=== PATIENT | female | born 1980 | race Asian ===

== ENCOUNTER → 2018-06-02 09:00 | Outpatient (CLI) | payer OTHER, MEDICAID, SELFPAY ==
--- NOTE | 2018-06-02 09:01 | DI.RAD.S_ITS ---
PROCEDURE: XR LUMBAR SPINE MIN 4V INDICATIONS: Bilateral L4-L5 and S1 medial branch blocks TECHNIQUE: 5 views of the lumbar spine were acquired. COMPARISON: [facility], , -SPINE 2-3 VIEWS, 06/20/2016, 13:55. FINDINGS: Bones: No fracture or focal osseous destruction. Mild straightening of the normal lumbar lordosis. Lower lumbar facet arthropathy from L4-S1. Lower thoracic disc space narrowing of the lumbar disc spaces appear grossly preserved. Endplate spurring and sclerosis. Soft tissues: Overlying bowel gas pattern is normal. No suspicious soft tissue calcifications. Oblique images: No pars defects. IMPRESSION: Mild lower lumbar facet arthropathy. Lower thoracic spondylosis Dictated by: Dorian Lainez M.D. on 06/02/2018 at 10:09 Approved by: Dorian Lainez M.D. on 06/02/2018 at 10:11
== END ==
PROVIDERS: Family Provider Registered Nurse; PCP Registered Nurse; Visit Provider Physical Medicine & Rehabilitation
DX: M47.26 Other spondylosis with radiculopathy, lumbar region (principal); M47.27 Other spondylosis with radiculopathy, lumbosacral region; M47.24 Other spondylosis with radiculopathy, thoracic region
CPT/HCPCS: 72110

== ENCOUNTER → 2019-11-14 10:26 | Outpatient (CLI) | payer OTHER, MEDICAID, SELFPAY ==
[2019-11-15 17:30] LABS: COVID19 Sendout Not Detected (Not Detect)
== END ==
PROVIDERS: Family Provider Registered Nurse; PCP Registered Nurse; Visit Provider Physician Assistant
DX: Z11.59 Encounter for screening for other viral diseases (principal)
CPT/HCPCS: 87635

== ENCOUNTER 2019-11-17 14:01 | Outpatient (CLI) | payer OTHER, MEDICAID, SELFPAY ==
[2019-11-17] VITALS (9 sets, daily range): BP systolic 105–125; BP diastolic 64–89; PULSE 90–104; RESP 15–17; TEMP 35.9; O2SAT 99–100
--- NOTE | 2019-11-17 14:03 | DI.RAD.S_ITS ---
PROCEDURE: PAIN L/S FACET INJ/BLK 1ST MACI COMPARISON: [facility], TY, L-SPINE 2-3 VIEWS, 06/20/2016, 13:55. [facility], , XR LUMBAR SPINE MIN 4V, 06/02/2018, 9:01. INDICATIONS: SPONDYLOSIS FINDINGS: Fluoroscopic images were obtained during a procedure and submitted for interpretation following the completion of the procedure. On these images, bilateral spinal needles are seen at the L4-L5 and L5-S1 levels, as labeled on the images. The appropriate position of the tips of the needles was confirmed with injection of a small amount of iodinated contrast. IMPRESSION: Intraprocedural examination within normal limits. Dictated by: Nathaniel Martinez M.D. on 11/18/2019 at 8:47 Approved by: Nathaniel Martinez M.D. on 11/18/2019 at 8:48
--- NOTE | 2019-11-17 14:29 | PC.NURSE ---
Patient is A& O able to make needs known. Green pain log and post injection instructions given prior to procedure. Has no other questions or concerns.
[2019-11-17] MEDS: MIDAZOLAM 5 MG/5 ML VIAL IV (14:40)
[2019-11-17] MEDS: fentaNYL 100 MCG/2 ML INJ 50 MCG IV (14:40)
[2019-11-17] MEDS: BUPIVACAINE 0.5% (PF) VIAL 5 ML INJ (14:44)
[2019-11-17] MEDS: LIDOCAINE 1% 20 ML 10 ML INJ (14:44)
[2019-11-17] MEDS: IOPAMIDOL 15 ML VIAL 3 ML INJ (14:44)
[2019-11-17] MEDS: BETAMETHASONE 30 MG/5 ML MDV 12 MG INJ (14:44)
--- NOTE | 2019-11-17 15:02 | P.PCN_ITS ---
Date/Time/Diagnoses Date of procedure: 11/17/19 Time of procedure: 15:02 Pre-procedure diagnosis: 1. FACET ARTHROPATHY 2. AXIAL LBP 3. MULTILEVEL DDD Post-procedure diagnosis: same Procedure Notes Procedure: 1. FLUOROSCOPICALLY GUIDED CONTRAST CONTROLLED FACET JOINT INJECTIONS BILATERAL L4/5, L5/S1 Indications: Karen is referred by Fabiola Whitlock, MSN, APARTMENT MAINTENANCE TECHNICIAN-BC for treatment of Axial LBP Physician: Derick Landa Total Fluoroscopy time (seconds): 14 Total sedation minutes: 17 Complications: none Procedure in detail & Post-procedure care: FINDINGS Multilevel Facet Arthropathy with Clinically significant axial LBP DESCRIPTION OF PROCEDURE Fluoroscopically guided, contrast-controlled bilateral L4/5, L5/S1 facet joint injections. Following review of allergy and review of potential side effects and complications, including, but not necessarily limited to, infection, allergic reaction, local tissue breakdown, stroke, temporary or permanent nerve injury, paralysis, and possible , the patient indicated that the patient understood and agreed to proceed. An informed consent document was signed by the patient, witnessed by a nurse, and placed in the patient's chart. Additionally, other treatment options including medications, modalities, and physical therapy were reviewed with the patient. After review of previous anaesthesic history and IV conscious sedation the patient was deemed safe to proceed with today?s procedure with IV conscious sedation as ASA class II designation. Safety time-out was performed to confirm patient ID, procedure to be performed and site of procedure. IV sedation was accomplished with a combination of 3mg of Versed and 50mcg of Fentanyl was administered by the RN after DO order, titrated to patient comfort during the course of the procedure while the patient remained responsive to all verbal commands In the prone position, following sterile prep and drape of the lumbar region, the posterior aspect of the L4/5, L5/S1 facet joints were identified fluoroscopically. The skin was anesthetized via a 25-gauge 1.5-inch needle with 1% lidocaine solution into the corresponding facet joints. At this point, a 22- gauge 3.5-inch spinal needle was atraumatically introduced and advanced under fluoroscopic guidance into the corresponding facet joints. Following negative aspiration, injections of approximately 0.2cc of Isovue 200 confirmed interarticular placement without vascular uptake. The identical procedure was then performed at the L4/5, L5/S1 facet joints on the left. Radiological data, including multiple fluoroscopic views of the lumbosacral spine, reveal a spinal needle at the L4/5, L5/S1 facet joints bilaterally. Subsequent views show flow of contrast material both superiorly and inferiorly within the joint space without vascular or intrathecal uptake. At this point, a total of 0.5cc including a mixture of 0.25cc Marcaine and 0.25cc betamethasone was injected without complication into each of the co rresponding facet joints. The patient tolerated the procedure well without signs or symptoms of complications prior to transfer to the recovery area continued monitoring without incident. The patient was then transferred to the recovery area where they were observed for an appropriate period of time after the injection. The patient reported a VAS score of 7 prior to the procedure and a post- procedure VAS of 0. POST OP INSTRUCTIONS The patient was provided a Pain Log to continue to record their response to the target-specific procedure prior to follow-up visit with their referring physician. Additionally, specific post-injection care instructions and a contact number to our office were provided if concerns arise regarding possible complications associated with the procedure are suspected.
--- NOTE | 2019-11-17 15:35 | PC.NURSE ---
Patient was steady on her feet. Has no questions or concerns at this time, taken out via W/c with [place], spouse waiting at ER entrance.
--- NOTE | 2019-11-17 16:08 | PC.NURSE ---
Tolerated procedure well. Sedation administered by MARGARET Mora. All other meds given by Dr Landa. Vitals stable during and immediately post procedure. Report given to MARGARET Castañeda for post procedure recovery.
== END 2019-11-17 15:24 ==
LOC: RAD 14:02
PROVIDERS: Family Provider Registered Nurse; PCP Registered Nurse; Referring Provider Physical Medicine & Rehabilitation; Visit Provider Physical Medicine & Rehabilitation
DX: M47.817 Spondylosis without myelopathy or radiculopathy, lumbosacral region (principal); M47.816 Spondylosis without myelopathy or radiculopathy, lumbar region; M54.5 Low back pain; M51.36 Other intervertebral disc degeneration, lumbar region; M51.37 Other intervertebral disc degeneration, lumbosacral region
CPT/HCPCS: 64493; 64494; 99152; 99153; J0702; J2250; J3010

== ENCOUNTER → 2020-01-25 10:17 | Outpatient (ROUT) | payer OTHER, MEDICAID, SELFPAY ==
[2020-01-25 10:19] LABS: COVID19 Sendout Not Detected (Not Detect)
== END ==
PROVIDERS: Family Provider Registered Nurse; PCP Registered Nurse; Visit Provider Physical Medicine & Rehabilitation
DX: M47.27 Other spondylosis with radiculopathy, lumbosacral region (principal); Q65.89 Other specified congenital deformities of hip
CPT/HCPCS: 87635

== ENCOUNTER 2020-01-26 10:07 | Outpatient (CLI) | payer OTHER, MEDICAID, SELFPAY ==
[2020-01-26] VITALS (12 sets, daily range): BP systolic 108–126; BP diastolic 63–80; PULSE 80–99; RESP 9–18; TEMP 36.4; O2SAT 96–100
--- NOTE | 2020-01-26 10:11 | DI.RAD.S_ITS ---
PROCEDURE: PAIN L/S FACET INJ/BLK 1ST MACI COMPARISON: [facility], XA, PAIN L/S FACET INJ/BLK 1ST MACI, 11/17/2019, 13:43. INDICATIONS: SPONDYLOSIS FINDINGS: Bilateral needle tip localization procedures have been performed at 6 total levels, for medial branch block procedures at L4, L5 and S1. IMPRESSION: Normal needle tip positioning for bilateral L3 through S1 medial branch block procedures. Dictated by: Rey Lopez M.D. on 01/26/2020 at 12:34 Approved by: Rey Lopez M.D. on 01/26/2020 at 12:35
[2020-01-26] MEDS: MIDAZOLAM 5 MG/5 ML VIAL IV (11:02)
[2020-01-26] MEDS: fentaNYL 100 MCG/2 ML INJ 50 MCG IV (11:02)
[2020-01-26] MEDS: BUPIVACAINE 0.5% (PF) VIAL 5 ML INJ (11:05)
[2020-01-26] MEDS: LIDOCAINE 1% 20 ML 10 ML INJ (11:05)
[2020-01-26] MEDS: IOPAMIDOL 15 ML VIAL 3 ML INJ (11:05)
--- NOTE | 2020-01-26 11:32 | PM.PROC.IR.1 ---
Date/Time/Diagnoses Date of procedure: 01/26/20 Time of procedure: 11:32 Pre-procedure diagnosis: 1. FACET ARTHROPATHY Post-procedure diagnosis: same Procedure Notes Procedure: 1. BILATERAL- L4, L5 and S1 DIAGNOSTIC MB BLOCKS with LA Anesthetic Indications: Karen is referred by Fabiola Whitlock , MSN, CLINICAL LIAISON-BC for treatment of Bilateral Axial LBP. Physician: Derick Landa Total Fluoroscopy time (seconds): 11 Total sedation minutes: 23 Complications: none Procedure in detail & Post-procedure care: DESCRIPTION OF PROCEDURE Fluoroscopically guided, contrast-controlled bilateral L4, L5 and S1 medial branch blocks with 0.5cc of 0.5% Marcaine. Following review of allergy and review of potential side effects and complications, including, but not necessarily limited to, infection, allergic reaction, local tissue breakdown, nerve injury, paralysis, stroke and possible , the patient indicated that the patient understood and agreed to proceed. An informed consent document was signed by the patient, witnessed by a nurse, and placed in the patient's chart. After review of previous anaesthesic history and IV conscious sedation the patient was deemed safe to proceed with today's procedure with IV conscious sedation as ASA class II designation. Safety time-out was performed to confirm patient ID, procedure to be performed and site of procedure. IV sedation was accomplished with a combination of 5mg of Versed and 50mcg of Fentanyl was administered by the RN after DO order, titrated to patient comfort during the course of the procedure while the patient remained responsive to all verbal commands In the prone position, following sterile prep and drape of the lumbar region, the right L4, L5 and S1 anatomical location of the medial branch of the dorsal ramus was identified fluoroscopically. Subsequently an anesthetic skin wheal using 1% lidocaine solution was initiated at each of the anatomical spots. Subsequently then a 22-gauge 3.5-inch spinal needle was atraumatically introduced and advanced under fluoroscopic guidance at each of the corresponding sites at the right L4, L5 and S1 MB. After negative aspiration, 0.2cc of Isovue 200 was injected, confirming placement without vascular or intrathecal uptake. Subsequently then 0.5cc of 0.5% Marcaine solution was injected at each of the corresponding sites at the right L4, L5 and S1 medial branch locations. The identical procedure was replicated on the left. The patient tolerated the procedure well without signs or symptoms of complications prior to transfer to the recovery area continued monitoring without incident. Post-procedure, the patient was monitored initiating provocative activities to measure the amount of relief from block of the facetogenic pain. The patient reported a VAS of 7 prior to the procedure and a post-procedure VAS of 1. It has been a pleasure to assist in the diagnostic and therapeutic care of your patient. POST OP INSTRUCTIONS The patient was provided with a Pain Log to complete over the next several hours and subsequent days prior to the patient's follow up with the ordering physician. If the patient has hematology nurse educator relief to the solution applied, then they may be a candidate for medial branch rhizotomy. The patient is aware, was provided, once again, with a Pain Log and will follow up with the referring physician for review and clinical correlation
--- NOTE | 2020-01-26 16:21 | PC.NURSE ---
Before bringing patient back into room her monitor reported that she had a blood sugar of 76, per Dr Landa 4 oz apple juice given. Patient was position on bed, VSS, Dr Landa started numbing her right side and her alarm went off saying it was 56, patient was alert and able to make needs known, She turned off her insulin so no basil rate, She was also able to drink another 4 oz of apple juice, blood sugar returned to 71 and procedure was resumed.
== END 2020-01-26 11:55 | disposition home or self-care (01) ==
LOC: RAD 10:09
PROVIDERS: Family Provider Registered Nurse; PCP Registered Nurse; Referring Provider Physical Medicine & Rehabilitation; Visit Provider Physical Medicine & Rehabilitation
DX: M47.816 Spondylosis without myelopathy or radiculopathy, lumbar region (principal); M47.817 Spondylosis without myelopathy or radiculopathy, lumbosacral region; M54.5 Low back pain
CPT/HCPCS: 64493; 64494; 99152; 99153; J2250; J3010

== ENCOUNTER 2020-04-26 07:25 | Outpatient (CLI) | payer OTHER, MEDICAID, SELFPAY ==
[2020-04-26] VITALS (13 sets, daily range): BP systolic 101–152; BP diastolic 55–103; PULSE 92–103; RESP 10–26; TEMP 37.2; O2SAT 92–100
--- NOTE | 2020-04-26 07:26 | DI.RAD.S_ITS ---
PROCEDURE: PAIN L/S MED/LAT N RFA BILAT INDICATIONS: SPONDYLOSIS COMPARISON: [facility], XA, PAIN L/S FACET INJ/BLK 1ST MACI, 01/26/2020, 11:05. FINDINGS: Fluoroscopic spot filming was performed to verify placement of spinal needles on the left and on the right at the L4, L5, and S1 level(s), as labeled on the films. IMPRESSION: Intraprocedural examination within normal limits. Dictated by: Nathaniel Martinez M.D. on 04/26/2020 at 8:26 Approved by: Nathaniel Martinez M.D. on 04/26/2020 at 8:26
[2020-04-26] MEDS: fentaNYL 100 MCG/2 ML INJ 50 MCG IV (08:28)
[2020-04-26] MEDS: MIDAZOLAM 5 MG/5 ML VIAL IV (08:43)
[2020-04-26] MEDS: BUPIVACAINE 0.5% (PF) VIAL 5 ML INJ (08:53)
[2020-04-26] MEDS: LIDOCAINE 1% 20 ML 10 ML INJ (08:53)
--- NOTE | 2020-04-26 09:04 | P.PCN_ITS ---
Date/Time/Diagnoses Date of procedure: 04/26/20 Time of procedure: 09:05 Pre-procedure diagnosis: 1. RECALCITRANT FACET ARTHROPATHY Post-procedure diagnosis: same Procedure Notes Procedure: 1. BILATERAL L4 AND L5 MEDIAL BRANCH RADIOFREQUENCY NEUROTOMY AND S1 DORSAL RAMUS BRANCH RADIOFREQUENCY NEUROTOMY Indications: Karen is referred by JENY Whitlock for treatment of facet arthropathy. Physician: Derick Landa Total Fluoroscopy time (seconds): 16 Total sedation minutes: 32 Complications: none Procedure in detail & Post-procedure care: DESCRIPTION OF PROCEDURE Bilateral L4 and L5 medial branch radiofrequency neurotomy and bilateral S1 dorsal ramus radiofrequency neurotomy under fluoroscopy with conscious sedation. The patient is well known to this clinic having undergone previous facet injections with good but temporary relief. The patient has experienced appropriate, concordant relief with previous facet and median branch blocks but the patient's pain has been recalcitrant to further conservative measures. Therefore, based upon the patient's relief and persistent symptoms, the patient is considered an appropriate candidate for facet rhizotomy. All of the patient's questions regarding the risks versus benefits of the procedure, including, but not limited to, bleeding, infection, temporary as well as lasting nerve injury, paralysis, stroke, and , as well treatment alternatives were answered to satisfaction. After obtaining informed consent, denial of pertinent drug allergies, as well as being made aware of the potential risks of bleeding, infection, spinal cord trauma, paralysis, temporary and permanent nerve damage, seizure, stroke, and possible , the patient was brought to the fluoroscopy suite and positioned prone on the fluoroscopy table. The lumbar region was prepped with Betadine and covered with a fenestrated drape in the usual sterile fashion. Appropriate monitors applied including pulse oximeter, pulse, and blood pressure for regular monitoring throughout the procedure. After review of previous anaesthesic history and IV conscious sedation the patient was deemed safe to proceed with today's procedure with IV conscious sedation as ASA class II designation. Safety time-out was performed to confirm patient ID, procedure to be performed and site of procedure. IV sedation was accomplished with a combination of 5mg of Versed and 50mcg of Fentanyl administered by the RN after DO order, titrated to patient comfort during the course of the procedure while the patient remained responsive to all verbal commands. After local infiltration using 1% lidocaine, under fluoroscopic guidance, a 10- cm RF insulated needle with a 10-mm active tip was positioned parallel to the junction of the right sacral ala and the superior articulating process where the S1 dorsal ramus resides. Needle placement was confirmed with motor stimulation of .5v on the right which produced local stimulation without radicular component. The stimulation was then increased to 2v with, once again, only local multifidus stimulation without radicular component. The needle was then removed and the identical procedure was performed along the length of the right L5 medial branch with motor stimulation at .7v on the right. The identical procedure was once again performed along the length of the right L4 medial branch with motor stimulation of .5v on the right. The medial branches were then anesthetised with 0.5% Marcaine. This was then followed by two discreet lesions performed at 80 degrees Celsius for 90 seconds each. The identical procedure was repeated on the left. The patient tolerated the procedure well without signs or symptoms of complications prior to transfer to the recovery area continued monitoring without incident. The patient was then transferred to the recovery area where they were observed for an appropriate period of time after the injection. The patient reported a VAS score of 9 prior to the procedure and a post-procedure VAS of 0. POST OP INSTRUCTIONS The patient was provided a Pain Log to continue to record the patient's response to the target-specific procedure prior to the patient's follow-up visit with the referring physician. Additionally, specific post-injection care instructions and a contact number to our office were provided if concerns arise regarding possible complications associated with the procedure are suspected.
== END 2020-04-26 09:25 | disposition home or self-care (01) ==
LOC: RAD 07:26
PROVIDERS: Family Provider Registered Nurse; PCP Registered Nurse; Referring Provider Registered Nurse; Visit Provider Physical Medicine & Rehabilitation
DX: M47.817 Spondylosis without myelopathy or radiculopathy, lumbosacral region (principal); M47.816 Spondylosis without myelopathy or radiculopathy, lumbar region
CPT/HCPCS: 64635; 64636; 99152; 99153; J2250; J3010

== ENCOUNTER 2020-08-25 10:01 | Outpatient (CLI) | payer OTHER, MEDICAID, SELFPAY ==
[2020-08-25] VITALS (8 sets, daily range): BP systolic 101–109; BP diastolic 56–70; PULSE 68–89; RESP 14–25; TEMP 36.1; O2SAT 95–100
--- NOTE | 2020-08-25 10:05 | DI.RAD.S_ITS ---
PROCEDURE: PAIN SI JOINT INJECTION INDICATIONS: SACROILIAC DISORDER COMPARISON: None. FINDINGS: Fluoroscopic spot filming was performed to verify placement of spinal needles at the left sacroiliac joint level(s), as labeled on the films. Appropriate location(s) of the needle tip(s) was confirmed by injection of iodinated contrast. Dictated by: Dorian Lainez M.D. on 08/25/2020 at 13:11 Approved by: Dorian Lainez M.D. on 08/25/2020 at 13:12
[2020-08-25] MEDS: fentaNYL 100 MCG/2 ML INJ 50 MCG IV (11:10)
[2020-08-25] MEDS: IOPAMIDOL 15 ML VIAL 3 ML INJ (11:12)
[2020-08-25] MEDS: BUPIVACAINE 0.5% (PF) VIAL 2 ML INJ (11:12)
[2020-08-25] MEDS: BETAMETHASONE 30 MG/5 ML MDV 12 MG INJ (11:12)
[2020-08-25] MEDS: MIDAZOLAM 5 MG/5 ML VIAL IV (11:15)
--- NOTE | 2020-08-25 11:23 | PM.PROC.IR.1 ---
Date/Time/Diagnoses Date of procedure: 08/25/20 Time of procedure: 11:23 Pre-procedure diagnosis: Sacroiliac Joint Pain/DJD Post-procedure diagnosis: same Procedure Notes Procedure: Fluoroscopically guided contrast controlled left sacroiliac joint injection Indications: Karen is referred by Chinyere,MATT,INSIDE SALES RECRUITER-BC for treatment of left sacroiliac joint DJD Physician: Derick Landa Total Fluoroscopy time (seconds): 14 Total sedation minutes: 10 Complications: none Procedure in detail & Post-procedure care: DESCRIPTION OF PROCEDURE Fluoroscopic guided, contrast controlled left sacroiliac joint injection Following review of allergies and review of potential side effects and complications, including, but not necessarily limited to, infection, allergic reaction, local tissue breakdown, temporary as well as permanent nerve injury, paralysis, stroke and possible , the patient indicated that they understood and agreed to proceed. An informed consent was signed by the patient, witnessed by a nurse, and placed in the patient's chart. Additionally, other treatment options including modalities, medications, and physical therapy were reviewed with the patient. After review of previous anaesthesic history and IV conscious sedation the patient was deemed safe to proceed with today?s procedure with IV conscious sedation as ASA class II designation. Safety time-out was performed to confirm patient ID, procedure to be performed and site of procedure. IV sedation was accomplished with a combination of 4mg of Versed and 50mcg of Fentanyl administered by the RN after DO order, titrated to patient comfort during the course of the procedure while the patient remained responsive to all verbal commands. In the prone position following sterile prep and drape of the pelvic region, the hyper lucency on in the inferior aspect of the left sacroiliac joint was identified fluoroscopically the skin was anesthetized be a 25 gauge 1 eventual with approximately 2cc of 1% lidocaine solution. At this point, a 22 gauge 3inch spinal needle was atraumatically introduced and advanced under fluoroscopic guidance into the inferior aspect of the left sacroiliac joint. Following negative aspiration, approximately 0.3cc of Isovue-300 was injected confirming intra-articular placement without vascular uptake. Radiographic data, including multiple fluoroscopic views of the pelvis, reveals a spinal needle in the left sacroiliac joint hyper lucent zone. Subsequent view show flow contrast tear superiorly and inferiorly within the joint capsule without vascular intrathecal uptake. At this point a total of 1cc or 0.5% Marcaine was combined with 1cc of 6mg of betamethasone was injected without incident. The patient tolerated the procedure well without signs or symptoms of complications prior to transfer to the recovery area for further monitoring. The patient was then transferred to the recovery area with a bur observed for an appropriate time after the injection. The patient reverted a vas score of 7 prior to the procedure and postprocedure vas of 1. POSTOP INSTRUCTIONS The patient was provided with a pain like to continue to record the patient's response to the target specific procedure prior to the patient's follow-up visit with the referring physician. Additionally, specific post injection care instructions and a contact number to our office were provided if concerns arise regarding the possible complications associated with procedure are suspected.
== END 2020-08-25 11:46 | disposition home or self-care (01) ==
LOC: RAD 10:04
PROVIDERS: Family Provider Registered Nurse; PCP Registered Nurse; Referring Provider Physical Medicine & Rehabilitation; Visit Provider Physical Medicine & Rehabilitation
DX: M53.3 Sacrococcygeal disorders, not elsewhere classified (principal); M46.1 Sacroiliitis, not elsewhere classified
CPT/HCPCS: 27096; 99152; J0702; J2250; J3010

== ENCOUNTER → 2021-01-09 11:39 | Outpatient (CLI) | payer OTHER, MEDICAID, SELFPAY ==
--- NOTE | 2021-01-09 11:42 | DI.RAD.S_ITS ---
PROCEDURE: XR SHOULDER RT MIN 2V INDICATIONS: right shoulder pain TECHNIQUE: 3 views of the shoulder were acquired. COMPARISON: None. FINDINGS: Bones: No fractures or dislocations. No suspicious bony lesions. Visualized ribs appear intact. Soft tissues: No suspicious soft tissue calcifications. IMPRESSION: No evidence acute bony abnormality of the right shoulder. If clinical suspicion and/or symptoms persist, further assessment with repeat plain films, or advanced imaging (e.g., CT, MRI, or bone scan) may be helpful for further assessment. Dictated by: Basil Ibarra M.D. on 01/09/2021 at 12:33 Approved by: Basil Ibarra M.D. on 01/09/2021 at 12:33
--- NOTE | 2021-01-09 11:42 | DI.RAD.S_ITS ---
PROCEDURE: XR SHOULDER LT MIN 2V INDICATIONS: LEFT SHOULDER PAIN TECHNIQUE: 3 views of the shoulder were acquired. COMPARISON: None. FINDINGS: Bones: No fractures or dislocations. Mild acromioclavicular joint osteoarthritic changes are seen with subchondral sclerosis. No suspicious bony lesions. Visualized ribs appear intact. Soft tissues: No suspicious soft tissue calcifications. IMPRESSION: Very mild acromioclavicular joint osteoarthritis. No shoulder fracture or dislocation. Dictated by: Orlin Renteria M.D. on 01/09/2021 at 12:53 Approved by: Orlin Renteria M.D. on 01/09/2021 at 12:58
== END ==
PROVIDERS: Family Provider Registered Nurse; Referring Provider Physical Medicine & Rehabilitation; Visit Provider Physical Medicine & Rehabilitation
DX: M25.512 Pain in left shoulder (principal); M19.012 Primary osteoarthritis, left shoulder; M25.511 Pain in right shoulder; M25.311 Other instability, right shoulder; M53.3 Sacrococcygeal disorders, not elsewhere classified; Q65.89 Other specified congenital deformities of hip; M47.27 Other spondylosis with radiculopathy, lumbosacral region; M51.26 Other intervertebral disc displacement, lumbar region; Z87.39 Personal history of other diseases of the musculoskeletal system and connective tissue
CPT/HCPCS: 73030; 99214

== ENCOUNTER → 2021-01-24 17:44 | Outpatient (CLI) | payer OTHER, MEDICAID, SELFPAY ==
--- NOTE | 2021-01-24 17:46 | DI.MRI.S_ITS ---
PROCEDURE: MR LUMBAR SPINE WO CON INDICATIONS: Lumbar radiculopathy TECHNIQUE: Noncontrast sagittal T1 spin echo and T2 fast echo, sagittal STIR, axial T1 and T2 fast spin echo through the lumbar spine. In cases with scoliosis, additional coronal T2 fast spin echo may be performed. COMPARISON: None. FINDINGS: Image quality: Excellent. Alignment and Curvature: There is normal bony alignment. Bone Marrow: Marrow is of normal overall signal. No acute vertebral body compression fractures. Spinal Cord: Conus medullaris terminates at the L1 level. Visualized cord demonstrates normal signal and size. Paraspinous Soft Tissues: No paravertebral masses. T12-L1: Normal appearance. L1-L2: Normal appearance. L2-L3: Normal appearance. L3-L4: Normal appearance. L4-L5: Normal appearance. L5-S1: The disc is desiccated with a central annular tear and central protrusion which comes in contact with but does not impinge upon the exiting S1 nerve roots. No foraminal or central canal stenosis. IMPRESSION: 1. Degenerative disc disease of L5-S1 with desiccation and a central annular tear/central protrusion which abuts but does not impinge upon the exiting S1 nerve roots. 2. No foraminal stenosis. 3. No central canal stenosis. 4. No abnormal cord signal. Dictated by: Jason Joshi M.D. on 01/25/2021 at 7:43 Approved by: Jason Joshi M.D. on 01/25/2021 at 7:47
== END ==
PROVIDERS: Family Provider Registered Nurse; Referring Provider Physical Medicine & Rehabilitation; Visit Provider Physical Medicine & Rehabilitation
DX: M47.27 Other spondylosis with radiculopathy, lumbosacral region (principal); M51.17 Intervertebral disc disorders with radiculopathy, lumbosacral region
CPT/HCPCS: 72148